=== PATIENT | female | born 1985 | race Asian ===

== ENCOUNTER 2020-03-31 09:27 | Outpatient (CLI) | payer OTHER ==
--- NOTE | 2020-03-31 10:36 | SLEEP CARE CONSULTATION ---
Information from patient questionnaire entered by Alicia Florian. I have reviewed and concur with the information entered by Alicia Florian. This document represents the service I personally performed and the decisions made by me, Debbie Estrella ARNP. History of Present Illness Service Date and Time: 03/31/2020926 Reason for Visit: New patient Chief Complaint: reports: Unrefreshed sleep (with body soreness), Snoring, Excessive daytime sleepiness, Observed pauses in breathing ( has witnessed), Fatigue (physically tired from renovations at home), Frequent awakenings at night (dreams or "catching herself falling" feeling wakes her up; restless body positioning), Other (Restless leg syndrome). denies: Insomnia Duration of Symptoms: 10 years Usual bedtime: 2200 Time it takes to fall asleep: 30-60 minutes Snores at night: Yes Observed to quit breathing while asleep: Yes Sleeps alone due to snoring: No Number of times waking at night: 2-3 Reasons for waking at night: reports: Choking, Snoring, Gasping for air, Bathroom. denies: Pain Toss, Turn, or Twitch while sleeping: Yes Recalls having dreams: Yes Usually gets out of bed at: 0600 Feels refreshed in the morning: Yes Morning headache: Yes Sleepy or fatigued during the day: Yes Ever fallen asleep while driving: Yes Takes day naps: Yes Dreams during day naps: Yes Prior sleep studies: No Additional HPI information: Patient has been having issues for 10 years but recently her has been telling her to get check because of witness pauses in breathing. She has issues with sleepiness with an Todd of 22 and difficulties with drowsy driving on long trips. - Parasomnia Symptoms Ever been unable to move upon waking from sleep: No Walks in sleep: No Talks in sleep: Yes Ever acted out dreams in sleep: Yes Ever felt weak in the knees when startled or emotional: No Bothered by creepy, crawly, restless sensations in legs: Yes Problems with memory or concentration: Yes (sometimes, repeated instructions to help understanding) Subjective Initial [place] Sleepiness Scale score: 22 Past Medical History Past Medical History: reports: Other (allergies). denies: Hypertension, Diabetes, Stroke, Coronary Heart Disease, Arrythmia, Anemia, Depression, Mood disorder, GERD Social History The patient's occupation is active . Patient is and lives in [place]. Have you smoked in the past 12 months: No Alcohol use: Yes Alcohol amount and frequency: 1-2, once a month Caffeine use: Yes Caffeine amount and frequency: 1-2/day Family History Family history of sleep disordered breathing: Yes Family Hx Sleep Apnea: Sibling: Snoring Allergies and Home Medications Drug allergies reviewed: Yes (NKDA) Home medication list reviewed: Yes (claritin, louann) Review of Systems Weight gain over past 5 years: 5-10 Cardiovascular: reports: palpitations, irregular heart rate or pulse (occasional felt, no pain). denies: high blood pressure, chest pain, leg or foot swelling, have to sleep sitting up Respiratory: reports: shortness of breath, wheeze. denies: chronic cough Gastrointestinal: denies: heartburn, difficulty swallowing, abdominal pain Urinary: denies: incontinence, frequency, urgency, impotence, other Neurological: reports: headaches (occasional, wake up during night with WALKER, sit up 30 mins to improve, water helps). denies: head trauma, disorientation, speech dysfunction, gait or balance problems Psychiatric: denies: Attention Deficit Hyperactivity, anxiety, depression, mood disorder Ear/Nose/Throat: reports: nasal congestion, sinus problems, dry mouth/throat (occ in morning but improved during day), wisdom teeth removed. denies: nose bleeds, injury to nose, tonsillectomy Endocrine: reports: sluggishness, too hot or cold [place]; feels due to new environment). denies: thyroid disease, history of goiter, excessive thirst, increased appetite Musculoskeletal: reports: neck pain (sometimes sleeps without pillow to decrease neck pain), back pain. denies: joint pain, joint swelling, muscle pain or cramping Immunologic: reports: sneezing, itching, allergies to food or environment Physical Exam Heart Rate: 70 O2 Saturation: 98 Height: 4 ft 11 in Weight: 137 lb 6.4 oz Body Mass Index: 27.7 BMI Classification: Overweight Neck circumference: 13.75 (inches) Nasal exam: negative: erythema, excoriation, scabs, blood tinged nasal secretions, other HEENT: No craniofacial malformation Nostrils: patent to airflow Turbinates: swollen (has allergies) Septum: midline Mouth and throat: normal Soft palate: normal Hard palate: normal Uvula: normal Uvula visualization: 50% Mallampati Class II Tongue: normal in size Tonsils: 2+ (on left side and 1+ on right) Chin and jaw: normal size and position Neck: normal w/o lymphadenopathy or thyromegaly Heart: regular rate and rhythm Lungs: clear bilaterally Impression and Plan 1. Suspected Obstructive Sleep Apnea-Hypopnea Syndrome, as suggested by a history of loud and irregular snoring, observed cessation of breath while asleep, gasping or choking in sleep, frequent awakening during the night, unrefreshed sleep, cognitive impairment, and excessive daytime sleepiness. I recommend proceeding to polysomnography to confirm the diagnosis and to assess severity. If the patient has significant sleep disordered breathing, a manual CPAP titration study will also be performed to find the optimal treatment pressure. I informed the patient of what the sleep studies involve and after some discussion, obtained agreement to proceed. The pathophysiology of obstructive sleep apnea-hypopnea syndrome was discussed with the patient and health risks of cardiovascular and cerebrovascular disease if not treated. AASM brochure for obstructive sleep apnea-hypopnea syndrome given and reviewed. Risks of drowsy driving discussed in detail and patient advised to avoid long distance driving and to bone puller at the first sign of drowsiness. Patient agreed to plan. * Schedule polysomnography and return in 1-2 weeks after the study to discuss result and initiate therapy. * Avoid long distance driving or driving when feeling sleepy. * Avoid alcohol, sedative and muscle relaxant around bedtime. * Attempt to lose weight. * Review instructions provided by trained office staff on how to prepare for the sleep study. * Return for follow-up after sleep study completed. Visit Type: In Office Provider Statement: I spent 100% of the Face to Face Visit with the patient with greater than 50% spent counseling the patient and coordination of care.
== END 2020-03-31 09:28 | disposition home or self-care (01) ==
LOC: SC 09:27
PROVIDERS: ATTEND Nurse Practitioner Family
DX: R06.83 Snoring (principal); R06.81 Apnea, not elsewhere classified; G47.8 Other sleep disorders; R41.89 Other symptoms and signs involving cognitive functions and awareness; G47.10 Hypersomnia, unspecified; E66.3 Overweight; Z68.27 Body mass index [BMI] 27.0-27.9, adult
CPT/HCPCS: 99204; 99212

== ENCOUNTER 2020-05-10 19:18 | Outpatient (CLI) | payer OTHER | END 2020-05-10 19:19 | disposition home or self-care (01) | LOC: SC 19:18 | PROVIDERS: ATTEND Internal Medicine Pulmonary Disease | DX: G47.33 Obstructive sleep apnea (adult) (pediatric) (principal); E66.3 Overweight; Z68.27 Body mass index [BMI] 27.0-27.9, adult | CPT/HCPCS: 95810 ==

== ENCOUNTER 2020-05-20 14:41 | Outpatient (CLI) | payer OTHER ==
--- NOTE | 2020-05-20 15:32 | SLEEP CARE CONSULTATION ---
Information from patient questionnaire entered by Juan J Gomez. I have reviewed and concur with the information entered by Juan J Gomez. This document represents the service I personally performed and the decisions made by me, Debbie Estrella ARNP. History of Present Illness Service Date and Time: 05/20/2020 1441 Initial [place] Sleepiness Scale score: 22 (in 2020) Current [place] Sleepiness Scale score: 21 Additional HPI information: GERHARD ADAMS returns with spouse for follow up and results of the recently performed polysomnography. She was found to have mild sleep apnea with an average AHI of 13.8 and a mo oxygen saturation of 80%. Her supine AHI was 68.2 and her non-supine AHI was 7.79. I explained the pathophysiology behind obstructive sleep apnea. We then spent quite a bit of time discussing different treatment options. For mild obstructive sleep apnea, surgery and oral appliance are alternatives to nasal CPAP therapy but in moderate or severe cases, nasal CPAP is the most effective and reliable treatment. Because apnea is primarily in supine position, then positional management therapy could be effective. Methods discussed such as positioning with pillows, using a T-shirt with tennis balls in the back, and [place] [address] products that have a pillow format on back to prevent supine sleep. I reviewed the impact of weight changes on sleep apnea and strongly recommended losing weight. After some discussion, the patient opted to go with the nasal CPAP therapy. Nasal autoCPAP set at 4-15 cmH20 will be ordered with rationale explained. A manual titration study will be ordered if unable to find optimal pressure with office adjustments. I explained how CPAP machine works with sample devices [id number] Dreamstation and AesRx [id number] and what to expect when using the machine. Using CPAP every night in order to get used to it was emphasized. Patient advised to put CPAP mask on before getting into bed so as not to fall asleep without CPAP. To assist acclimation to CPAP use, it could also be used for a short time during day while reading or watching TV. The patient was instructed to call the CPAP supplier to discuss any mechanical problem that may occur. If the mask given is uncomfortable or is difficult to keep on through the night even with adjustment, contact the CPAP supplier as many will replace with another mask style if notified before 30 days. If snoring or perceives is not getting enough air or too much air from the machine, notify this office. [facility] patient education PAP tips and Non Pap treatment pamphlets reviewed and given to patient. Patient counseled not drink alcohol less than 4 hours before bedtime as it can increase snoring and apnea. Patient was cautioned about risks of drowsy driving until sleepiness symptoms resolve. Sleep Study - Results Type of Sleep Study: Polysomnography Prior sleep studies: No Polysomnography/Home Sleep Study results: IMPRESSION: The quality of the study is good. The patient had normal sleep efficiency. Except for mild sleep fragmentation, the sleep architecture was normal. Respiratory monitoring showed mild obstructive sleep apneahypopnea (AHI = 13.8) associated with frequent arousals, oxyhemoglobin desaturation and mild hypoxia (mo oxygen saturation of 80%). Baseline oxygen saturation was normal. The respiratory events occurred mainly during supine sleep (supine AHI = 69.2; non-supine = 7.79). Snore was moderate to loud in intensity. There was no significant periodic leg movement of sleep. Cardiac rhythm was normal sinus rhythm without significant arrhythmia. No abnormal behavior (parasomnia) observed during the night. Allergies and Home Medications Drug allergies reviewed: Yes (NKDA) Home medication list reviewed: Yes (tylenol for headaches) Review of Systems Review of systems same as previous: Yes (no changes) Physical Exam Heart Rate: 77 O2 Saturation: 98 Height: 4 ft 11 in Weight: 138 lb 6.4 oz Body Mass Index: 27.9 BMI Classification: Overweight Impression and Plan 1. Obstructive Sleep Apnea-Hypopnea Syndrome, mild, with lowest oxygen saturation of 80%. Obviously this is the cause of the patients symptoms of unrefreshed sleep, and excessive daytime sleepiness. Positive pressure therapy could benefit her overall health and reduce risks for developing cardiac disease or cerebrovascular disease. As mentioned above, the patient will be started on nasal autoCPAP therapy with pressure set at 4-15 cmH2O. Compliance guidelines also reviewed. A copy of compliance guidelines will be given for reference at check out. Because the apnea is more severe supine, I instructed to avoid sleeping supine using pillow positioning until able to start CPAP use. 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 I will place her order as urgent to enable her to get it soon and we can hopefully follow up with her first compliance before she is deployed. * Nasal auto CPAP therapy, pressure at 4-15 cm H2O. * Attempt to lose weight. * Avoid alcohol consumption near bedtime. * Avoid supine sleep until using CPAP. * The patient is again cautioned about driving until sleepiness completely re solves. * Return one month after CPAP obtained. I will assess response to therapy and compliance at that time. Visit Type: In Office Time Spent with Patient (minutes): 20 Provider Statement: I spent 100% of the Face to Face Visit with the patient with greater than 50% spent counseling the patient and coordination of care.
== END 2020-05-20 14:42 | disposition home or self-care (01) ==
LOC: SC 14:41
PROVIDERS: ATTEND Nurse Practitioner Family
DX: G47.33 Obstructive sleep apnea (adult) (pediatric) (principal); E66.3 Overweight; Z68.27 Body mass index [BMI] 27.0-27.9, adult
CPT/HCPCS: 99212; 99213

== ENCOUNTER 2020-11-03 10:25 | Outpatient (CLI) | payer OTHER ==
--- NOTE | 2020-11-03 11:03 | SLEEP CARE CONSULTATION ---
Information from patient questionnaire entered by Monica White. I have reviewed and concur with the information entered by Monica White. This document represents the service I personally performed and the decisions made by , Debbie Estrella ARNP. History of Present Illness Service Date and Time: 11/03/2020 1025 Previous diagnosis: Mild, Obstructive Sleep Apnea-Hypopnea Syndrome AHI: 13.8 (in 2019) Reason for follow up: first compliance Equipment type: CPAP Equipment obtained from: [employer] (getting supplies as needed) Mask style: Full face Backup mask available: Yes (other mask) Last cushion change: 4 months Prior sleep studies: Yes Year and Where: 2019 - [facility] Type of Sleep Study: Polysomnography HPI additional information: GERHARD ADAMS was diagnosed to have mild, AHI 13.8, obstructive sleep apnea- hypopnea syndrome and returned today for CPAP therapy first compliance follow- up. CPAP Compliance Data - Data Reviewed with Patient Average duration of nightly device use: 4 hr 56 min Compliance rate %: 70 (07/29/20-08/27/20)(last 30 63) Current pressure setting (cmH2O): 4-15 (9.9 median, 11.7 average, 12.4 maximum) Humidity settin Average residual AHI: 2.0 Subjective Missed days of use due to: reports: travel Patient concerns: reports: mask discomfort, mask leak noise, dry mouth, nose, throat. denies: aerophagia, air blowing in eyes, condensation in mask/hose, nasal congestion, epistaxis, other Observed to snore while using device: No Current pressure setting perceived as: too high (while she is asleep, hard to get seal) On therapy, patient: reports: sleeping better, awakening more refreshed, being more awake and alert during the day, more rested overall. denies: drowsiness while driving Initial [place] Sleepiness Scale score: 22 (in 2020) Current [place] Sleepiness Scale score: 14 Allergies and Home Medications Home medication list reviewed: Yes (no changes) Review of Systems Review of systems same as previous: Yes (no changes) Physical Exam Heart Rate: 69 O2 Saturation: 98 Height: 4 ft 11 in Weight: 145 lb Body Mass Index: 29.2 BMI Classification: Overweight Impression and Plan 1. Obstructive Sleep Apnea-Hypopnea Syndrome, mild, with fair treatment compliance and good apnea control. On CPAP therapy, the patient has better sleep quality and is more rested overall. She has had some times when she wakes up and the pressure has felt too much. She has restarted the machine to ramp the pressure down and has been able to go back to sleep. She thinks the pressure may be okay otherwise. I will adjust her pressure to 10-11 cmH2O to see if this is more comfortable for her. She is to let me know if it still feels too much, not enough or she has aerophagia. She has had some mouth dryness. Oral dryness can be reduced by adjusting humidity setting higher or heated hose lower or by adjusting both settings. Verbal instructions given on how to change humidity and heated hose settings with rationale explaining why to change. Her [place] is 14/24 today and she is averaging just under 5 hours of sleep nightly on the CPAP. I advised patient to try to increase the hours of use to 7-9 hours a night because this will further reduce her sleepiness and she will get better benefit for her health. Patient's apnea severity and rationale for treatment to reduce apnea, improve sleep quality and reduce cardiovascular and cerebrovascular events was reviewed. 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 * Change auto CPAP pressure to 10-11 cmH2O * Notify me if snoring with mask or feeling that the pressure is too much or too little * Call this office if any problems using CPAP * Return for follow up when returns from deployment, or will call sooner if concerns arise Counseling Topics: Spare mask Visit Type: In Office Time Spent with Patient (minutes): 23 Provider Statement: I spent 100% of the Face to Face Visit with the patient with greater than 50% spent counseling the patient and coordination of care.
== END 2020-11-03 10:26 | disposition home or self-care (01) ==
LOC: SC 10:25
PROVIDERS: ATTEND Nurse Practitioner Family
DX: G47.33 Obstructive sleep apnea (adult) (pediatric) (principal); E66.3 Overweight; Z68.29 Body mass index [BMI] 29.0-29.9, adult
CPT/HCPCS: 99212; 99213